=== PATIENT | female | born 2000 | race Two or more races ===

== ENCOUNTER 2025-11-02 09:13 | Outpatient (CLI) | payer OTHER | END 2025-11-02 09:14 | disposition home or self-care (01) | LOC: PRENATAL 09:13 | PROVIDERS: ATTEND Obstetrics & Gynecology Maternal & Fetal Medicine | DX: O44.02 Complete placenta previa NOS or without hemorrhage, second trimester (principal); O10.012 Pre-existing essential hypertension complicating pregnancy, second trimester; O99.212 Obesity complicating pregnancy, second trimester; Z3A.23 23 weeks gestation of pregnancy ==